=== PATIENT | female | born 1995 | race Caucasian/White ===

== ENCOUNTER 2016-10-29 19:14 | Emergency (ER) | payer OTHER ==
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
== END 2016-10-29 20:30 | disposition home or self-care (01) ==
LOC: CED 19:14
DX: S13.9XXA Sprain of joints and ligaments of unspecified parts of neck, initial encounter (principal); S00.81XA Abrasion of other part of head, initial encounter; V43.52XA Car driver injured in collision with other type car in traffic accident, initial encounter
CPT/HCPCS: 70450; 72040; 84703; 99284